=== PATIENT | female | born 1970 | race Two or more races ===

== ENCOUNTER 2017-04-21 16:01 | Emergency (ER) | payer BC ==
[2017-04-21] MEDS ORDERED: NORMAL SALINE 1000 ML 1,000 ML IV ONE (16:35)
[2017-04-21] MEDS ORDERED: ASPIRIN 81 MG TABLET, CHEWABLE PO ONE (17:12)
[2017-04-21 17:16] LABS: ABSOLUTE EOSINOPHILS # (AUTO) 0.2 10^3/uL (0.0-0.6); ABSOLUTE LYMPHOCYTES (AUTO) 2.6 10^3/uL (0.5-4.7); ABSOLUTE MONOCYTES (AUTO) 0.7 10^3/uL (0.1-1.4); ABSOLUTE NEUT (AUTO) 2.2 10^3/uL (1.7-8.2); BASOPHILS % (AUTO) 0.3 % (0-2); EOSINOPHILS % (AUTO) 3.4 % (0-6); HEMATOCRIT 37.9 % (36.0-47.0); HEMOGLOBIN 12.9 g/dL (12.0-15.5); HGB HCT DIFFERENCE 0.8; LYMPHOCYTES % (AUTO) 45.9 % (13-45); MEAN CORPUSCULAR HEMOGLOBIN 30.5 pg (27.0-33.4); MEAN CORPUSCULAR VOLUME 90 fl (80-97); MONOCYTES % (AUTO) 12.4 % (3-13); RED BLOOD COUNT 4.22 10^6/uL (3.72-5.28); RED CELL DISTRIBUTION WIDTH 12.3 % (11.5-14.0); WHITE BLOOD COUNT 5.7 10^3/uL (4.0-10.5)
[2017-04-21 17:20] LABS: APPEARANCE,URINE SLIGHTLY-CLOUDY; BILIRUBIN,URINE NEGATIVE (NEGATIVE); GLUCOSE, URINE NEGATIVE (NEGATIVE); KETONES,URINE NEGATIVE (NEGATIVE); LEUKOCYTE ESTERASE,URINE NEGATIVE (NEGATIVE); NITRITE,URINE NEGATIVE (NEGATIVE); PROTEIN,URINE NEGATIVE (NEGATIVE)
--- NOTE | 2017-04-21 17:28 | ER Document Report ---
ED Medical Screen (RME) - General Chief Complaint: Other Stated Complaint: POSSIBLE THYROID PROBLEM Time Seen by Provider: 04/21/17 16:35 TRAVEL OUTSIDE OF THE [place] IN LAST 30 DAYS: No - HPI Notes: 04/21/17 17:28 Patient with multiple complaints - Related Data Allergies/Adverse Reactions: No Known Allergies Allergy (Verified 04/21/17 16:17) Past Medical History Endocrine Medical History: Reports: Hx Hypothyroidism Renal/ Medical History: Reports: Hx Kidney Stones. Denies: Hx Peritoneal Dialysis Past Surgical History: Reports: Hx Appendectomy, Hx Section, Hx Tonsillectomy Review of Systems - Review of Systems Constitutional: Other - Multiple complaints complaining of myalgias hair loss feeling fatigued and weak back pain Physical Exam - Vital signs Vitals: Temp Pulse Resp BP Pulse Ox 97.9 F 18 L 98 H 120/83 98 04/21/17 16:10 04/21/17 16:10 04/21/17 16:10 04/21/17 16:10 04/21/17 16:10 - Respiratory Respiratory status: No respiratory distress Chest status: Nontender Breath sounds: Normal Chest palpation: Normal Course - Vital Signs Vital signs: Temp Pulse Resp BP Pulse Ox 97.9 F 18 L 98 H 120/83 98 04/21/17 16:10 04/21/17 16:10 04/21/17 16:10 04/21/17 16:10 04/21/17 16:10 - Laboratory Result Diagrams: 04/21/17 16:42 04/21/17 16:42 Laboratory results interpreted by me: 04/21/17 04/21/17 16:42 16:42 Seg Neutrophils % 38.0 L Lymphocytes % 45.9 H Urine Urobilinogen 2.0 H
--- NOTE | 2017-04-21 17:32 | ER Document Report ---
ED General - General Chief Complaint: Other Stated Complaint: POSSIBLE THYROID PROBLEM Time Seen by Provider: 04/21/17 16:35 Mode of Arrival: Ambulatory Information source: Patient, Relative - Notes: Patient presents to the emergency department with multiple complaints to include throbbing MERIDA, heart racing, feeling anxious shaky and depressed insomnia hair loss dizzy. She reports symptoms come/go for the past two weeks. Patient reports she has a history of thyroid issues. She reports when she had her baby in August the physician took her off her thyroid medication. She reports she feels like this is related to her thyroid. Her reports that she only has 1 friend here. She does not drive. Patient is from [facility]. Patient speaks limited [place]. She just got her green card yesterday and will be returning to [place] very soon for 3 months to visit. Denies fever vomiting diarrhea. TRAVEL OUTSIDE OF THE [place] IN LAST 30 DAYS: No - HPI Onset: Other - two weeks Onset/Duration: Persistent Quality of pain: Throbbing Pain Level: 3 Associated symptoms: Headache. denies: Chest pain, Diarrhea, Nausea, Vomiting Exacerbated by: Denies Relieved by: Denies Similar symptoms previously: Yes Recently seen / treated by doctor: No - Related Data Allergies/Adverse Reactions: No Known Allergies Allergy (Verified 04/21/17 16:17) Past Medical History - General Information source: Patient Last Menstrual Period: 03/24/17- denies - Social History Smoking Status: Unknown if Ever Smoked Frequency of alcohol use: None Drug Abuse: None Lives with: Family Family History: Reviewed & Not Pertinent Patient has suicidal ideation: No Patient has homicidal ideation: No Endocrine Medical History: Reports: Hx Hypothyroidism Renal/ Medical History: Reports: Hx Kidney Stones. Denies: Hx Peritoneal Dialysis Past Surgical History: Reports: Hx Appendectomy, Hx Section, Hx Tonsillectomy Review of Systems - Review of Systems Notes: Review HPI for review of systems., All other systems negative Physical Exam - Vital signs Vitals: Temp Pulse Resp BP Pulse Ox 97.9 F 18 L 98 H 120/83 98 04/21/17 16:10 04/21/17 16:10 04/21/17 16:10 04/21/17 16:10 04/21/17 16:10 - Notes Notes: PHYSICAL EXAMINATION: GENERAL: Well-appearing and in no acute distress HEAD: Atraumatic, normocephalic. EYES: Pupils equal round extraocular movements intact, sclera anicteric, conjunctiva are normal. ENT: nares patent, Moist mucous membranes. NECK: Normal range of motion, supple without lymphadenopathy LUNGS: CTAB and equal. No wheezes rales or rhonchi. HEART: Regular rate and rhythm without murmurs ABDOMEN: Soft, no tenderness. No guarding, no rebound EXTREMITIES: Normal range of motion, no pitting edema. No cyanosis. NEUROLOGICAL: Cranial nerves grossly intact. Normal sensory/motor exams. PSYCH: Normal mood, normal affect. SKIN: Warm, Dry, normal turgor, no rashes or lesions noted Course - Re-evaluation Re-evalutation: 04/21/17 19:12 tsh<0.01, FT4- 6.47, Hyperthyroid, pt is unsure of previous medications or name of previous doctor that treated her. dr burns consulted, advised propanolol obtain pcp for patient to [facility]. [facility] contacted, they noted last prescription for levothyroxine 100 mcg q day, tapazole 10 mg TID obtained in 03/21, [facility] reports she only received one tablet of levothyroxine from dr lópez mercedes, Dr. Annmarie alarcon contacted. She accepts patient as follow-up. Request Tapazole 5 mg 3 times daily to start. Patient and instructed on plan of care verbalized understanding. - Vital Signs Vital signs: Temp Pulse Resp BP Pulse Ox 97.9 F 18 L 98 H 120/83 98 04/21/17 16:10 04/21/17 16:10 04/21/17 16:10 04/21/17 16:10 04/21/17 16:10 04/21/17 19:36 clarification hr is 98 RR 18 - Laboratory Result Diagrams: 04/21/17 16:42 04/21/17 16:42 Laboratory results interpreted by me: 04/21/17 04/21/17 04/21/17 16:42 16:42 16:42 Seg Neutrophils % 38.0 L Lymphocytes % 45.9 H Lipase 313.3 H TSH < 0.01 L Free T4 6.47 H Urine Urobilinogen 04/21/17 16:42 Seg Neutrophils % Lymphocytes % Lipase TSH Free T4 Urine Urobilinogen 2.0 H - Diagnostic Test Radiology reviewed: Image reviewed, Reports reviewed Discharge - Discharge Clinical Impression: Throbbing headache, Palpitations, Hyperthyroidism Condition: Stable Disposition: HOME, SELF-CARE Instructions: Hyperthyroidism ([facility]) Additional Instructions: *You have been evaluated for palpitations, throbbing MERIDA, Hyperthyroidism *Take medication as prescribed *Follow up with dr annmarie alarcon sunday, call for an appointment *Return to ED for worsening condition, changes, needs, concerns Prescriptions: Methimazole [Tapazole 5 Mg Tablet] 5 mg PO TID #20 tablet Referrals: AMNA ALARCON MD [ACTIVE STAFF] - 04/23/17 (call for an appointment sunday)
[2017-04-21 17:34] LABS: ALANINE AMINOTRANSFERASE 41 U/L (9-52); ALBUMIN 3.8 g/dL (3.5-5.0); ALKALINE PHOSPHATASE 80 U/L (38-126); ANION GAP 11 (5-19); ASPARTATE AMINO TRANSFERASE 23 U/L (14-36); BILIRUBIN,DIRECT 0.3 mg/dL (0.0-0.4); BILIRUBIN,TOTAL 0.4 mg/dL (0.2-1.3); BLOOD UREA NITROGEN 16 mg/dL (7-20); CALCIUM 9.8 mg/dL (8.4-10.2); CARBON DIOXIDE 25 mmol/L (22-30); CHLORIDE 106 mmol/L (98-107); CREATINE KINASE 34 U/L (30-135); CREATININE RESULT 0.66 mg/dL (0.52-1.25); GLUCOSE 106 mg/dL (75-110); LIPASE 313.3 U/L (23-300); SODIUM 142.1 mmol/L (137-145); TOTAL PROTEIN 6.7 g/dL (6.3-8.2)
[2017-04-21 17:47] LABS: CREATINE KINASE MB 0.38 ng/mL (<4.55)
[2017-04-21 17:48] LABS: TROPONIN I < 0.012 ng/mL
--- NOTE | 2017-04-21 18:27 | RADIOLOGY REPORT (SQ) ---
EXAM DESCRIPTION: CHEST PA/LAT COMPLETED DATE/TIME: 04/21/2017 6:07 pm REASON FOR STUDY: sob COMPARISON: 04/03/2016 EXAM PARAMETERS: NUMBER OF VIEWS: two views TECHNIQUE: Digital Frontal and Lateral radiographic views of the chest acquired. RADIATION DOSE: NA LIMITATIONS: none FINDINGS: LUNGS AND PLEURA: No opacities, masses or pneumothorax. No pleural effusion. MEDIASTINUM AND HILAR STRUCTURES: No masses or contour abnormalities. HEART AND VASCULAR STRUCTURES: Heart normal size. No evidence for failure. BONES: No acute findings. HARDWARE: None in the chest. OTHER: No other significant finding. IMPRESSION: NO SIGNIFICANT RADIOGRAPHIC FINDING IN THE CHEST. TECHNICAL DOCUMENTATION: JOB ID: [id number]- All Rights Reserved
[2017-04-21 18:52] LABS: THYROID STIMULATING HORMONE < 0.01 uIU/mL (0.47-4.68)
[2017-04-21 19:46] VITALS: BP 123/64
--- NOTE | 2017-04-21 22:01 | EKG REPORT ---
SEVERITY:- OTHERWISE NORMAL ECG - SINUS TACHYCARDIA : Confirmed by: Stacy Dia 21-Apr-2017 22:01:01
== END 2017-04-21 19:45 | disposition home or self-care (01) ==
LOC: ER 16:01
DX: R51 Headache (principal); R00.2 Palpitations; E05.90 Thyrotoxicosis, unspecified without thyrotoxic crisis or storm; F41.9 Anxiety disorder, unspecified; Z87.442 Personal history of urinary calculi
CPT/HCPCS: 93005; 99284; 96360; 36415; 84439; 82553; 82550; 83690; 84443; 84703; 85025; 80053; 81001; 84484; 71020; 93010; J7030